=== PATIENT | male | born 1965 | race Caucasian/White ===

== ENCOUNTER 2016-05-21 10:06 | Emergency (ER) | payer OTHER ==
[~2016-05-21] VITALS: Ht 175.3 cm; Wt 90.0 kg
[~2016-05-21 10:06] MED LIST: CEPH500C3 PO; DICL50 PO; SULF-154 PO; Z.0.NO CURRENT MEDS
[2016-05-21 10:08] VITALS: BP 186/112; PULSE 83; RESP 15; TEMP 98.1; O2SAT 96
--- NOTE | 2016-05-21 11:28 | PD ---
HPI Chief Complaint: Complaint Stated Complaint: GROIN PAIN Time Seen by Provider: 11:28 Travel History International Travel<30 days: No Contact w/Intl Traveler<30days: No Known affected area: No History of Present Illness HPI 50-year-old male with no significant medical history presents to emergency department for evaluation of testicular pain worsening over the last 2-3 days. Patient denies any trauma. States that he has been voiding frequently with small amount of output. States the pain radiates into his abdomen and is mostly on the left side. Pain is a ache with intermittent sharp stabbing pains. States that today he has began to ache all over. Deep that he is a monogamous relationship so he does not utilize condoms prophylaxis. Denies any recent drainage. No recent illnesses fever, chills. No other symptoms to report. 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 HEAD: Atraumatic. Normocephalic. EYES: Pupils equal and round. No scleral icterus. No injection or drainage. ENT: No nasal bleeding or discharge. Mucous membranes pink and moist. NECK: Trachea midline. No JVD. CARDIOVASCULAR: Regular rate and rhythm. No murmur appreciated. RESPIRATORY: No accessory muscle use. Clear to auscultation. Breath sounds equal bilaterally. GASTROINTESTINAL: Abdomen soft, non-tender, nondistended. Hepatic and splenic margins not palpable. GENITOURINARY: Circumcised. Testes descended bilaterally without evidence of rotation. The epididymis is ropey and tender on the left testicle. Patient verbalizes pain with palpation of the left testicle. No urethral discharge. MUSCULOSKELETAL: No obvious deformities. No clubbing. No cyanosis. No edema. NEUROLOGICAL: Awake and alert. No obvious cranial nerve deficits. Motor grossly within normal limits. Normal speech. PSYCHIATRIC: Appropriate mood and affect; insight and judgment normal. Data Data Last Documented VS Vital Signs Date Time Temp Pulse Resp B/P Pulse Ox O2 Delivery O2 Flow Rate FiO2 05/21/16 10:08 98.1 83 15 186/112 96 Orders Urinalysis - C+S If Indicated (05/21/16 10:44) Complete Blood Count With Diff (05/21/16 11:31) Basic Metabolic Panel (Bmp) (05/21/16 11:31) Us Testicles W Doppler (05/21/16 ) Gc And Chlamydia Pcr (05/21/16 11:52) Labs Laboratory Tests Test 05/21/16 11:45 White Blood Count 6.3 TH/MM3 Red Blood Count 4.83 MIL/MM3 Hemoglobin 14.9 GM/DL Hematocrit 43.3 % Mean Corpuscular Volume 89.7 FL Mean Corpuscular Hemoglobin 30.8 PG Mean Corpuscular Hemoglobin 34.3 % Concent Red Cell Distribution Width 13.9 % Platelet Count 217 TH/MM3 Mean Platelet Volume 7.6 FL Neutrophils (%) (Auto) 75.2 % Lymphocytes (%) (Auto) 11.0 % Monocytes (%) (Auto) 10.9 % Eosinophils (%) (Auto) 2.1 % Basophils (%) (Auto) 0.8 % Neutrophils # (Auto) 4.7 TH/MM3 Lymphocytes # (Auto) 0.7 TH/MM3 Monocytes # (Auto) 0.7 TH/MM3 Eosinophils # (Auto) 0.1 TH/MM3 Basophils # (Auto) 0.0 TH/MM3 CBC Comment DIFF FINAL Differential Comment Urine Color YELLOW Urine Turbidity CLEAR Urine pH 7.0 Urine Specific Peak 1.016 Urine Protein NEG mg/dL Urine Glucose (UA) NEG mg/dL Urine Ketones NEG mg/dL Urine Occult Blood NEG Urine Nitrite NEG Urine Bilirubin NEG Urine Urobilinogen LESS THAN 2.0 MG/DL Urine Leukocyte Esterase NEG Urine RBC 1 /hpf Urine WBC LESS THAN 1 /hpf Urine Squamous Epithelial <1 /hpf Cells Microscopic Urinalysis Comment CULT NOT INDICATED Sodium Level 139 MEQ/L Potassium Level 4.2 MEQ/L Chloride Level 104 MEQ/L Carbon Dioxide Level 30.0 MEQ/L Anion Gap 5 MEQ/L Blood Urea Nitrogen 13 MG/DL Creatinine 1.09 MG/DL Estimat Glomerular Filtration 72 ML/MIN Rate Random Glucose 96 MG/DL Calcium Level 8.9 MG/DL Chlamydia trachomatis DNA NOT DETECTED (PCR) Neisseria gonorrhoeae DNA NOT DETECTED (PCR) MDM Medical Decision Making Medical Screen Exam Complete: Yes Emergency Medical Condition: Yes Medical Record Reviewed: Yes Differential Diagnosis Epididymitis versus testicular torsion versus UTI versus STD versus testicular cancer Narrative Course 50-year-old male presents to the emergency department for evaluation. Patient appears without distress. Left testicle is tender to palpate in the epididymis is ropey and tender as well. Ultrasound shows multiple testicular microlithiasis and recommends outpatient follow-up. This is discussed with the patient. Due to the tenderness of the epididymis, patient will be started on doxycycline. He is encouraged follow-up with primary care provider, urology, and return immediately with any acute worsening symptoms. Diagnosis Primary Impression: Testicular microlithiasis Additional Impressions: Testicular pain Urinary frequency Referrals: Primary Care Physician Urologist Patient Instructions: General Instructions, Testicular Self-examination (ED) Additional Instructions: Follow-up with urology Return immediately to the emergency department with any acute worsening of symptoms Med/Other Pt SpecificInfo: Prescription(s) given Scripts Doxycycline Hyclate 100 Mg [id number] Mg PO BID #20 CAP Ref 0 Prov:Maddie Rosales 05/21/16 Disposition: 01 DISCHARGE HOME Condition: Stable Maddie Rosales May 21, 2016 11:28
[2016-05-21 12:05] LABS: AUTOMATED NEUTROPHIL # 4.7 TH/MM3 (1.8-7.7); BASOPHIL % 0.8 % (0.0-2.0); EOSINOPHIL # 0.1 TH/MM3 (0-0.4); EOSINOPHIL % 2.1 % (0.0-4.0); HEMATOCRIT 43.3 % (39.0-51.0); HEMO FLAGS DIFF FINAL; LYMPHOCYTE # 0.7 TH/MM3 (1.0-4.8); MEAN CELL VOLUME 89.7 FL (80.0-100.0); MEAN CORPUSCULAR HEMOGLOBIN 30.8 PG (27.0-34.0); MEAN CORPUSCULAR HGB CONC 34.3 % (32.0-36.0); MONO % 10.9 % (0.0-8.0); NEUT % 75.2 % (16.0-70.0); PLATELET COUNT 217 TH/MM3 (150-450); RED BLOOD COUNT 4.83 MIL/MM3 (4.50-5.90); RED CELL DISTRIBUTION WIDTH 13.9 % (11.6-17.2); WHITE BLOOD COUNT 6.3 TH/MM3 (4.0-11.0)
[2016-05-21 12:14] LABS: BLOOD, URINE NEG (NEG); GLUCOSE,URINE NEG (NEG); KETONE, URINE NEG (NEG); NITRITE,URINE NEG (NEG); SQUAMOUS EPITHELIAL CELL URINE <1 /hpf (0-5); URINE COLOR YELLOW (YELLW/STRAW)
[2016-05-21 12:16] LABS: COMMENT (UR) CULT NOT INDICATED; CULTURE IF INDICATED CULT NOT INDICATED
[2016-05-21 12:24] LABS: POTASSIUM 4.2 MEQ/L (3.5-5.1)
--- NOTE | 2016-05-21 12:45 | RADRPT ---
EXAM DATE/TIME: 05/21/2016 12:02 [facility] COMPARISON: No previous studies available for comparison. INDICATIONS : Pain in bilateral testicles. MEDICAL HISTORY : Hypertension. Arthritis. Right leg numbness. MRSA left knee 2012. SURGICAL HISTORY : Amputated left toe. ENCOUNTER: Initial ACUITY: 3 days PAIN SCORE: 8/10 LOCATION: Bilateral testicles. MEASUREMENTS: RIGHT TESTICLE: 4.9 x 3.4 x 2.2cm LEFT TESTICLE: 4.6 x 3.3 x 2.0cm FINDINGS: RIGHT TESTICLE: Intact color flow. No evidence of intratesticular mass. Microlithiasis noted LEFT TESTICLE: Intact color flow. No evidence of intratesticular mass. Microlithiasis noted. Mild varicocele. SCROTUM: Within normal limits. CONCLUSION: Bilateral testicular microlithiasis. Followup recommended secondary to elevated risk of testicular ma lignancy. No evidence of torsion or other acute process. Karan Izquierdo MD on May 21, 2016 at 12:41 Board Certified Radiologist. This report was verified electronically.
[2016-05-21] MEDS ORDERED: DOXY100C PO (13:27)
[2016-05-21 14:28] LABS: CHLAMYDIA PCR NOT DETECTED (NOT DETECT); NEISSERIA PCR NOT DETECTED (NOT DETECT)
== END 2016-05-21 14:34 | disposition home or self-care (01) ==
LOC: NETRI 10:06
DX: N50.812 Left testicular pain (principal); R35.0 Frequency of micturition
CPT/HCPCS: 76870; 80048; 81001; 85025; 87491; 87591; 93975